=== PATIENT | female | born 2000 | race Two or more races ===

== ENCOUNTER 2023-02-22 18:28 | Emergency (ER) | payer OTHER ==
[~2023-02-22] VITALS: Ht 160 cm; Wt 68.0 kg
== END 2023-02-22 21:47 | disposition home or self-care (01) ==
LOC: ER 18:28
DX: R05.8 Other specified cough (principal); Z20.822 Contact with and (suspected) exposure to COVID-19; Z88.6 Allergy status to analgesic agent

== ENCOUNTER 2023-12-08 15:08 | Emergency (ER) | payer OTHER ==
[~2023-12-08] VITALS: Ht 162.6 cm; Wt 68.0 kg
== END 2023-12-08 17:37 | disposition home or self-care (01) ==
LOC: ER 15:09
DX: S80.862A Insect bite (nonvenomous), left lower leg, initial encounter (principal); W57.XXXA Bitten or stung by nonvenomous insect and other nonvenomous arthropods, initial encounter; Z88.6 Allergy status to analgesic agent

== ENCOUNTER → 2025-04-26 | Emergency (ER) | payer OTHER ==
[~2025-04-26] VITALS: Ht 162.6 cm; Wt 61.7 kg
[~2025-04-26] MED LIST: ACETAMINOPHEN650 M2 PO; CYCLOBENZAPRINE5 MG PO; MEDROLPACK PO
== END | disposition left against medical advice (07) ==
LOC: ER 13:18
DX: Z53.21 Procedure and treatment not carried out due to patient leaving prior to being seen by health care provider (principal)